=== PATIENT | female | born 1965 | race African-American/Black ===

== ENCOUNTER 2016-07-29 19:19 | Emergency (ER) | payer OTHER, MEDICAID ==
[~2016-07-29] VITALS: Ht 154.9 cm; Wt 68.0 kg
[~2016-07-29 19:19] MED LIST: ACETAMINOPHEN325 M1 PO; BENADRYL25 MG PO; BRISDELLE7.5 MG PO; BUTALB-APAP-CA1 EACH PO; CARISOPRODOL 3350 MG PO; CARVEDILOL12.5 MG PO; CIPRO500 MG PO; CIPROFLOXACIN500 M1 PO; COLACE1 EAC1 RC; COREG25 MG PO; CYMBALTA60 MG PO; DEPAKOTE ER250 MG PO; FENTANYL PATCH75 MCG TP; FLEXERIL PO; IBUPROFEN 600600 M1 PO; IBUPROFEN 800800 MG PO; KEFLEX500 MG PO; LISINOPRIL10 MG PO; LOPRESSOR25 PO; LYRICA150 MG PO; MIRALAX17 GM PO; MIRALAX255 GM PO; MOM PO; MS CONTIN 60 MG60 M1; MS CONTIN15 MG PO; NABUMETONE 750750 M1 PO; NEXIUM40 MG PO; NITROGLYCERIN0.4 MG SUBLING; NORCO 5-325 TA1 EACH PO; OMEPRAZOLE 20 M20 M1 PO; OXYCONTIN10 M1 PO; OXYCONTIN20 M1 PO; PERCOCET 10-321 EACH PO; PERCOCET 10-651 EACH PO; PERCOCET 5-3251 EACH PO; PHENERGAN 25 MG25 M1 PO; PREDNISONE 20 M20 MG PO; PREMARIN0.9 M1 PO; PROZAC40 MG PO; SENNA PO; SOMA250 MG PO; TOPROL XL50 MG PO; TRAZODONE 150150 M1 PO; VENLAFAXIN75 MG/1 T2 PO; VENLAFAXINE HCL75 M2 PO; XANAX 0.5 MG0.5 M1 PO; ZANAFLEX4 M1 PO; ZESTRIL10 MG PO; ZOFRAN ODT4 MG PO
[2016-07-29] MEDS ORDERED: NAPROSYN500 MG PO (23:29)
== END 2016-07-29 23:48 | disposition home or self-care (01) ==
LOC: ER 19:19
DX: M43.6 Torticollis (principal); F31.9 Bipolar disorder, unspecified; I10 Essential (primary) hypertension; G89.29 Other chronic pain; I48.91 Unspecified atrial fibrillation; Z88.0 Allergy status to penicillin; Z88.2 Allergy status to sulfonamides; Z91.040 Latex allergy status

== ENCOUNTER → 2016-08-01 | Outpatient (CLI) | payer OTHER ==
[~2016-08-01] MED LIST changes: +NAPROSYN500 MG PO
== END ==
LOC: CAT 12:50
DX: M54.2 Cervicalgia (principal)

== ENCOUNTER 2017-06-26 14:52 | Emergency (ER) | payer OTHER ==
[~2017-06-26] VITALS: Ht 170.2 cm; Wt 77.1 kg
[2017-06-26] MEDS ORDERED: NAPROSYN500 MG PO (15:35)
[2017-06-26] MEDS ORDERED: TRAMADOL 50 MG50 MG PO (15:35)
== END 2017-06-26 15:56 | disposition home or self-care (01) ==
LOC: ER 14:52
DX: S66.912A Strain of unspecified muscle, fascia and tendon at wrist and hand level, left hand, initial encounter (principal); I10 Essential (primary) hypertension; F41.9 Anxiety disorder, unspecified; F31.9 Bipolar disorder, unspecified; G89.29 Other chronic pain; I48.91 Unspecified atrial fibrillation; Z88.2 Allergy status to sulfonamides; Z88.0 Allergy status to penicillin; Z91.040 Latex allergy status; Z88.1 Allergy status to other antibiotic agents; X58.XXXA Exposure to other specified factors, initial encounter; Y93.89 Activity, other specified; Y92.89 Other specified places as the place of occurrence of the external cause; Y99.8 Other external cause status

== ENCOUNTER 2017-09-16 14:55 | Emergency (ER) | payer OTHER ==
[~2017-09-16] VITALS: Ht 152.4 cm; Wt 86.2 kg
[~2017-09-16 14:55] MED LIST changes: +TRAMADOL 50 MG50 MG PO
[2017-09-16] MEDS ORDERED: LIDOCARE1 EACH TOP (15:56)
[2017-09-16] MEDS ORDERED: MOBIC15 MG PO (15:56)
[2017-09-16 17:52] VITALS: BP 154/78
== END 2017-09-16 17:53 | disposition home or self-care (01) ==
LOC: ER 14:55
DX: G89.29 Other chronic pain (principal); M54.5 Low back pain; M54.2 Cervicalgia; I10 Essential (primary) hypertension; F31.9 Bipolar disorder, unspecified; F41.9 Anxiety disorder, unspecified; I48.91 Unspecified atrial fibrillation; Z88.0 Allergy status to penicillin; Z88.2 Allergy status to sulfonamides; Z91.040 Latex allergy status; W10.9XXA Fall (on) (from) unspecified stairs and steps, initial encounter; Y93.01 Activity, walking, marching and hiking; Y92.89 Other specified places as the place of occurrence of the external cause; Y99.8 Other external cause status

== ENCOUNTER 2019-08-28 14:30 | Emergency (ER) | payer OTHER ==
[~2019-08-28] VITALS: Ht 154.9 cm; Wt 68.0 kg
[~2019-08-28 14:30] MED LIST changes: +LIDOCARE1 EACH TOP; +MOBIC15 MG PO
[2019-08-28 14:35] VITALS: BP 136/76
[2019-08-28] MEDS ORDERED: HYDROXYZINE HCL25 M2 PO (14:41)
[2019-08-28] MEDS ORDERED: DILAUDID 4 MG TA4 M1 PO (14:42)
[2019-08-28] MEDS ORDERED: CLONIDINE1 EAC1 TRANSDERM (14:43)
== END 2019-08-28 15:00 | disposition home or self-care (01) ==
LOC: ER 14:30
DX: Z53.21 Procedure and treatment not carried out due to patient leaving prior to being seen by health care provider (principal)